=== PATIENT | male | born 1955 | race Caucasian/White ===

== ENCOUNTER 2017-07-08 17:15 | Emergency (ER) | payer OTHER ==
[2017-07-08] MEDS ORDERED: HYDROmorphONE/DILAUDID 1 MG/ML INJ IVP ONE (17:29)
[2017-07-08] MEDS ORDERED: NS 1,000 ML IV ONE ×2 (17:29→18:14)
[2017-07-08] MEDS ORDERED: ONDANSETRON DISINTEGRATING 4 MG TAB PO ONE (17:30)
--- NOTE | 2017-07-08 17:32 | EDPHY ---
H & P Time Seen by Provider: 07/08/17 17:26 HPI/ROS: CHIEF COMPLAINT: Left flank pain HISTORY OF PRESENT ILLNESS: The patient is a 61-year-old man who comes to the emergency department complaining of severe left flank pain that radiates to his groin. This began around 2 hours ago unexpectedly. He denies any injury. No lifting. No pain with movement. He states that he cannot get comfortable. He feels nauseous but has not vomited. No fever. He has had bilateral inguinal hernia surgery repair remotely. REVIEW OF SYSTEMS: Constitutional: denies: chills, fever, recent illness, recent injury EENTM: denies: blurred vision, double vision, nose congestion Respiratory: denies: cough, shortness of breath Cardiac: denies: chest pain, irregular heart rate, lightheadedness, palpitations Gastrointestinal/Abdominal: denies: abdominal pain, diarrhea, nausea, vomiting, blood streaked stools Genitourinary: See HPI Musculoskeletal: denies: joint pain, muscle pain Skin: denies: lesions, rash, jaundice, bruising Neurological: denies: headache, numbness, paresthesia, tingling, dizziness, weakness Hematologic/Lymphatic: denies: blood clots, easy bleeding, easy bruising Immunologic/allergic: denies: HIV/AIDS, transplant EXAM: GENERAL: Uncomfortable, well-nourished and in no acute distress. HEAD: Atraumatic, normocephalic. EYES: Pupils equal round and reactive to light, extraocular movements intact, sclera anicteric, conjunctiva are normal. ENT: TMs normal, nares patent, oropharynx clear without exudates. Moist mucous membranes. NECK: Normal range of motion, supple without lymphadenopathy or JVD. LUNGS: Breath sounds clear to auscultation bilaterally and equal. No wheezes rales or rhonchi. HEART: Regular rate and rhythm without murmurs, rubs or gallops. ABDOMEN: Soft, nontender, normoactive bowel sounds. No guarding, no rebound. No masses appreciated. BACK: No CVA tenderness, no spinal tenderness, step-offs or deformities EXTREMITIES: Normal range of motion, no pitting or edema. No clubbing or cyanosis. NEUROLOGICAL: Cranial nerves II through XII grossly intact. Normal speech, normal gait. 5/5 strength, normal movement in all extremities, normal sensation PSYCH: Normal mood, normal affect. SKIN: Warm, dry, normal turgor, no visible rashes or lesions. Source: Patient Exam Limitations: No limitations - Medical/Surgical History Hx Asthma: No Hx Chronic Respiratory Disease: No Hx Diabetes: No Hx Cardiac Disease: Yes Hx Renal Disease: No Hx Cirrhosis: No Hx Alcoholism: No Hx HIV/AIDS: No Other PMH: [place] 2006, Stents, HTN, ACL repair L knee, Hernia repair 2012. HODGKINS LYMPHOMA - Family History Significant Family History: No pertinent family hx - Social History Smoking Status: Never smoked Alcohol Use: Sober Drug Use: None Constitutional: Initial Vital Signs Temperature (C) 37.2 C 07/08/17 17:29 Heart Rate 65 07/08/17 17:29 Respiratory Rate 18 07/08/17 17:29 Blood Pressure 188/103 H 07/08/17 17:29 O2 Sat (%) 95 07/08/17 17:29 O2 Delivery Mode Room Air Allergies/Adverse Reactions: No Known Allergies Allergy (Verified 07/08/17 17:28) Home Medications: Medication Instructions Recorded Aspirin [Aspirin 325 mg (OTC)] 325 mg PO DAILY 11/07/13 Atorvastatin Calcium [Lipitor 80 80 mg PO DAILY 11/07/13 mg] Cholecalciferol Vit D3 [Vitamin D3 1,000 units PO DAILY 11/07/13 1000 units (OTC)] Herbals/Supplements -Info Only 1 each PO AD 11/07/13 Metoprolol Succinate Xr [Toprol Xl] 25 mg PO DAILY 11/07/13 [place]-3 Fatty Acids/Fish Oil [Fish 1 each PO DAILY 11/07/13 Oil 1,000 mg Softgel] Ubidecarenone [Coq-10] 100 mg PO DAILY 11/07/13 Ketorolac Tromethamine [Toradol] 10 mg PO Q6H #16 tab 07/08/17 Ondansetron Odt [Zofran Odt 4 mg 4 mg PO Q4 PRN #20 tab 07/08/17 (RX)] Tamsulosin HCl [Flomax] 0.4 mg PO DAILY #10 cap 07/08/17 oxyCODONE/APAP 5/325 [Percocet 1 - 2 tab PO Q4H PRN #14 tab 07/08/17 5/325] Medical Decision Making - Diagnostics Imaging Results: Imaging Impressions Abdomen/Pelvis CT 07/08/17 17:29 Impression: 1. 2 mm distal left ureteral stone, with moderate obstructive uropathy. 2. Coronary artery atherosclerosis. 3. Cholelithiasis, without evidence of cholecystitis. 4. Degenerative change in the spine. 5. Prostatic hypertrophy. 6. Additional findings, as above. Findings discussed with Jerzy Rascon M.D., on July 08, 2017 at 1802. Attention: This CT examination is specifically designed to evaluate patients who are clinically suspected of having acute obstructive uropathy. This examination does not use radiographic contrast, and as such, provides only a limited evaluation of the abdomen, pelvis, and retroperitoneum. If there is further clinical suspicion for pathological conditions other than obstructive uropathy, a complete CT evaluation of the abdomen and pelvis utilizing intravenous and oral contrast should be considered. ED Course/Re-evaluation: 6:45 p.m. the patient's pain is completely controlled. He has received a 2nd L of IV fluids because his creatinine was slightly elevated. I will prepare prescriptions for discharge. We discussed follow-up and continued management home. Discussed indications for returning. Differential Diagnosis: Partial list of the Differential diagnosis considered include but were not limited to; kidney stone, urinary tract infection and although unlikely based on the history and physical exam, I also considered diverticulitis, dissection, aneurysm. I discussed these differential diagnoses and the plan with the patient as well as the usual and expected course. The patient understands that the diagnosis is provisional and that in medicine we are not always correct and that further workup is often warranted. Usual and customary warnings were given. All of the patient's questions were answered. The patient was instructed to return to the emergency department should the symptoms at all worsen or return, otherwise to followup with the physician as we discussed. - Data Points Laboratory Results: Laboratory Results 07/08/17 17:41 07/08/17 17:41 07/08/17 07/08/17 17:41 17:41 WBC 9.50 10^3/uL 10^3/uL (3.80-9.50) RBC 4.79 10^6/uL 10^6/uL (4.40-6.38) Hgb 14.6 g/dL g/dL (13.7-17.5) Hct 44.1 % % (40.0-51.0) MCV 92.1 fL fL (81.5-99.8) MCH 30.5 pg pg (27.9-34.1) MCHC 33.1 g/dL g/dL (32.4-36.7) RDW 12.5 % % (11.5-15.2) Plt Count 207 10^3/uL 10^3/uL (150-400) MPV 10.6 fL fL (8.7-11.7) Neut % (Auto) 78.6 % H % (39.3-74.2) Lymph % (Auto) 12.5 % L % (15.0-45.0) [place] % (Auto) 6.7 % % (4.5-13.0) Eos % (Auto) 1.5 % % (0.6-7.6) Baso % (Auto) 0.4 % % (0.3-1.7) Nucleat RBC Rel Count 0.0 % % (0.0-0.2) Absolute Neuts (auto) 7.46 10^3/uL H 10^3/uL (1.70-6.50) Absolute Lymphs (auto) 1.19 10^3/uL 10^3/uL (1.00-3.00) Absolute Monos (auto) 0.64 10^3/uL 10^3/uL (0.30-0.80) Absolute Eos (auto) 0.14 10^3/uL 10^3/uL (0.03-0.40) Absolute Basos (auto) 0.04 10^3/uL 10^3/uL (0.02-0.10) Absolute Nucleated RBC 0.00 10^3/uL 10^3/uL (0-0.01) Immature Gran % 0.3 % % (0.0-1.1) Immature Gran # 0.03 10^3/uL 10^3/uL (0.00-0.10) Sodium 142 mEq/L mEq/L (134-144) Potassium 4.5 mEq/L mEq/L (3.5-5.2) Chloride 105 mEq/L mEq/L (97-110) Carbon Dioxide 25 mEq/l mEq/l (22-31) Anion Gap 12 mEq/L mEq/L (8-16) BUN 19 mg/dL mg/dL (7-23) Creatinine 1.3 mg/dL mg/dL (0.7-1.3) Estimated GFR 56 Glucose 92 mg/dL mg/dL (70-100) Calcium 9.9 mg/dL mg/dL (8.5-10.4) Total Bilirubin 0.8 mg/dL mg/dL (0.1-1.4) Conjugated Bilirubin 0.5 mg/dL mg/dL (0.0-0.5) Unconjugated Bilirubin 0.3 mg/dL mg/dL (0.0-1.1) AST 29 IU/L IU/L (17-59) ALT 41 IU/L IU/L (21-72) Alkaline Phosphatase 80 IU/L IU/L (38-126) Total Protein 6.7 g/dL g/dL (6.3-8.2) Albumin 4.1 g/dL g/dL (3.5-5.0) Lipase 163 IU/L IU/L (23-300) Medications Given: Discontinued Medications Hydromorphone HCl (Dilaudid) 1 mg IVP EDNOW ONE Stop: 07/08/17 17:30 Last Admin: 07/08/17 17:38 Dose: 1 mg Sodium Chloride (Ns) 1,000 mls @ 0 mls/hr IV EDNOW ONE; Wide Open PRN Reason: Protocol Stop: 07/08/17 17:30 Last Admin: 07/08/17 17:54 Dose: 1,000 mls Sodium Chloride (Ns) 1,000 mls @ 0 mls/hr IV EDNOW ONE; Wide Open PRN Reason: Protocol Stop: 07/08/17 18:15 Last Admin: 07/08/17 18:27 Dose: 1,000 mls Ketorolac Tromethamine (Toradol) 30 mg IVP EDNOW ONE Stop: 07/08/17 18:05 Last Admin: 07/08/17 18:10 Dose: 30 mg Ondansetron HCl (Zofran Odt) 4 mg PO EDNOW ONE Stop: 07/08/17 17:31 Last Admin: 07/08/17 17:54 Dose: 4 mg Tamsulosin HCl (Flomax) 0.4 mg PO EDNOW ONE Stop: 07/08/17 18:41 Last Admin: 07/08/17 18:44 Dose: 0.4 mg Departure - Departure Disposition: Home, Routine, Self-Care Clinical Impression: Calculus of left kidney Condition: Fair Instructions: Ketorolac (By mouth), Kidney Stones (ED) Referrals: Enrike Wallace MD [Primary Care Provider] - As per Instructions Neel Infante MD [Medical Doctor] - As per Instructions Prescriptions: Ketorolac Tromethamine [Toradol] 10 mg PO Q6H #16 tab Ondansetron Odt [Zofran Odt 4 mg (RX)] 4 mg PO Q4 PRN #20 tab PRN Reason: Nausea & Vomiting oxyCODONE/APAP 5/325 [Percocet 5/325] 1 - 2 tab PO Q4H PRN #14 tab PRN Reason: Pain, Severe Tamsulosin HCl [Flomax] 0.4 mg PO DAILY #10 cap
[2017-07-08 17:52] LABS: % IMMATURE GRANULYOCYTES 0.3 % (0.0-1.1); ABSOLUTE IMMATURE GRANULOCYTES 0.03 10^3/uL (0.00-0.10); ADD DIFF? NO; ADD MORPH? NO; ADD SCAN? NO; ATYPICAL LYMPHOCYTE FLAG 0 (0-99); FRAGMENT RBC FLAG 0 (0-99); HEMATOCRIT 44.1 % (40.0-51.0); HEMOGLOBIN 14.6 g/dL (13.7-17.5); LEFT SHIFT FLG 0 (0-99); LIPEMIA HEMOLYSIS FLAG 80 (0-99); MEAN CELL HEMOGLOBIN 30.5 pg (27.9-34.1); MEAN CELL HEMOGLOBIN CONCENTR. 33.1 g/dL (32.4-36.7); MEAN CELL VOLUME 92.1 fL (81.5-99.8); MEAN PLATELET VOLUME 10.6 fL (8.7-11.7); PLATELET CLUMPS FLAG 10 (0-99); PLATELET COUNT 207 10^3/uL (150-400); RED BLOOD CELL COUNT 4.79 10^6/uL (4.40-6.38); RED CELL DISTRIBUTION WIDTH 12.5 % (11.5-15.2)
[2017-07-08 17:53] VITALS: RESP 18
[2017-07-08] MEDS ORDERED: KETOROLAC 30 MG/1 ML SDV IVP ONE (18:04)
[2017-07-08 18:07] LABS: ALBUMIN 4.1 g/dL (3.5-5.0); BILIRUBIN,TOTAL 0.8 mg/dL (0.1-1.4); BILIRUBIN-CONJUGATED 0.5 mg/dL (0.0-0.5); BILIRUBIN-UNCONJUGATED 0.3 mg/dL (0.0-1.1); CALCIUM 9.9 mg/dL (8.5-10.4); CREATININE 1.3 mg/dL (0.7-1.3); POTASSIUM 4.5 mEq/L (3.5-5.2); TOTAL PROTEIN 6.7 g/dL (6.3-8.2)
[2017-07-08] MEDS ORDERED: TAMSULOSIN HCL 0.4 MG CAP PO ONE (18:40)
[2017-07-08 19:29] VITALS: BP 134/90; PULSE 68; TEMP 98.8; O2SAT 91
== END 2017-07-08 19:24 | disposition home or self-care (01) ==
LOC: CED 17:15
DX: N20.0 Calculus of kidney (principal); I10 Essential (primary) hypertension; E86.9 Volume depletion, unspecified; Z79.82 Long term (current) use of aspirin; Z95.5 Presence of coronary angioplasty implant and graft
CPT/HCPCS: 74176-PO; 80048-PO; 80076-PO; 83690-PO; 85025-PO; 96374; J1170; J1885

== ENCOUNTER 2017-09-11 05:48 | Day surgery (SDC) | payer OTHER ==
[2017-09-11] MEDS ORDERED: ceFAZolin 2 GM/SWFI 2 GM/20 ML SYR IVP ONE (06:02)
[2017-09-11] MEDS ORDERED: LR 1,000 ML IV ONE (06:03)
[2017-09-11] MEDS ORDERED: LIDOCAINE 1% 2 ML INJ ID PRN (06:03)
[2017-09-11] MEDS ORDERED: MIDAZOLAM 2 MG/2 ML VIAL IVP ONE (06:54)
[2017-09-11] MEDS ORDERED: BUPIVACAINE 0.25% 30 ML SDV ONE (06:55)
[2017-09-11] MEDS ORDERED: NALOXONE HCL 0.4 MG/ML INJ IVP PRN (06:55)
[2017-09-11] MEDS ORDERED: ALBUTEROL 3 ML DEYVIAL IH PRN (06:55)
[2017-09-11] MEDS ORDERED: BUPIVACAINE 0.5% 30 ML SDV ONE (06:55)
[2017-09-11] MEDS ORDERED: fentaNYL 100 MCG/2 ML INJ IVP PRN (06:55)
[2017-09-11] MEDS ORDERED: ONDANSETRON 4 MG/2 ML VIAL IVP PRN ×2 (06:55→08:12)
--- NOTE | 2017-09-11 06:55 | PDANEPAE ---
ANE History of Present Illness here for CTR ANE Past Medical History - Cardiovascular History Hx Hypertension: Yes Hx Arrhythmias: No Hx Chest Pain: No Hx Coronary Artery / Peripheral Vascular Disease: Yes Cardiovascular History Comment: 2 STENTS PLACED 2006. high chol. cad - Pulmonary History Hx COPD: No Hx Asthma/Reactive Airway Disease: No Hx Recent Upper Respiratory Infection: No Hx Oxygen in Use at Home: No Hx Sleep Apnea: No Sleep Apnea Screening Result - Last Documented: Positive Pulmonary History Comment: yoselin triggers only. hx of asthma none in years. prone to bronchitis - Neurologic History Hx Cerebrovascular Accident: No Hx Seizures: No Hx Dementia: No Neurologic History Comment: numbness to right hand. minimally to left hand - Endocrine History Hx Diabetes: No - Renal History Hx Renal Disorders: No - Liver History Hx Hepatic Disorders: No - Neurological & Psychiatric Hx Hx Neurological and Psychiatric Disorders: No - Cancer History Hx Cancer: Yes Cancer History Comment: 12/2013 hodgkins lymphoma with chemo and radiation - Congenital Disorder History Hx Congenital Disorders: No - GI History Hx Gastrointestinal Disorders: Yes Gastrointestinal History Comment: opiods cause extreme constipation - Other Health History Other Health History: wears glasses - Chronic Pain History Chronic Pain: Yes (right wrist/ hand and left shoulder) - Surgical History Prior Surgeries: 12/2013 bx between ribs for Hodgkins lymphoma. 11/10/13 Right partial knee with Holcomb. INGUINAL HERNIA BILATERAL 08/2013. ACL 28 YEARS AGO LEFT KNEE. MENISCUS RIGHT KNEE. ROTATOR CUFF RIGHT 2004 ANE Review of Systems Review of systems is: negative Review of Systems: - Exercise capacity Exercise capacity: >=4 METS METS (RN): 4 METS ANE Patient History - Allergies Allergies/Adverse Reactions: Opioids - Morphine Analogues Allergy (Verified 08/10/17 13:45) Other-Enter Comments - Home Medications Home medications: home medication list seen and reviewed Home Medications: Atorvastatin Calcium [Lipitor 80 mg] 11/07/13 [Last Taken 09/10/17] Cholecalciferol Vit D3 [Vitamin D3 1000 units (OTC)] 11/07/13 [Last Taken 09/04] Metoprolol Succinate Xr [Toprol Xl] 11/07/13 [Last Taken 09/10/17] Ubidecarenone [Coq-10] 11/07/13 [Last Taken 09/04/17] Aspirin 81mg (*) 08/10/17 [Last Taken 09/04/17] - NPO status NPO Status: no food or drink >8 hours NPO Since - Liquids (Date): 09/11/17 NPO Since - Liquids (Time): 04:00 NPO Since - Solids (Date): 09/10/17 NPO Since - Solids (Time): 23:55 - Anes Hx Anes Hx: no prior problems - Smoking Hx Smoking Status: Never smoked - Family Anes Hx Family Hx Anesthesia Complications: none ANE Labs/Vital Signs - Vital Signs Blood Pressure: 154/99 Heart Rate: 67 Respiratory Rate: 16 O2 Sat (%): 92 Height: 175.26 cm Weight: 76.204 kg ANE Physical Exam - Airway Neck exam: FROM Mallampati Score: Class 1 - Pulmonary Pulmonary: no respiratory distress - Cardiovascular Cardiovascular: regular rate and rhythym - ASA Status ASA Status: II ANE Anesthesia Plan Anesthesia Plan: GA w LMA
--- NOTE | 2017-09-11 07:05 | PDGENHP ---
History and Physical - Chief Complaint carpal tunnel syndrome - History of Present Illness Describe the reason for today's visit The patient is a 61 year old male who presents to our neurosurgery clinic today for apreop visit regarding carpal tunnel syndrome. He had a carpal tunnel injection which decreased the severe episodes of pain but his symptoms are still present. They are worse in the right than the left. and relatively unchanged from the last visit. He has also had bilateral wrist fractures and a bone graft on the RT wrist at the lateral radial head. The incision is not across the wrist. He presents today to sign consents for surgery. PAST MEDICAL HISTORY heart attack, stents 2006 hodgkins lymphoma 2014, neuropathy PAST SURGICAL HISTORY Hernia Sx: 2013 knee replacement 2014 rotator cuff R shoulder sx 2004 SOCIAL HISTORY Tobacco Use Never Smoked Alcohol Consumption Yes socially; once per month ALLERGIES DAIRY ROS 10 point ROS obtained and is negative except for what is stated in the history of present illness VITALS Height : 69.00 inch. 175.26 cm Weight : 168.00 lbs. 76.2 kg B M I: 24.81 Temperature : 98.40 F. 36.89 C Blood Pressure : 145 / 94 Pulse: 69 beats/minute PE Neuro Normal Constitutional No acute distress. Well developed Appropriate mood and affect Reflexes Brachioradialis (C5-6) Left 2+ Right 2+ Other Reflexes Hoffmans Absent Bilaterally Motor Examination Strength Upper Extremities Deltoid (C5-6) Bilaterally 5/5 Biceps-brachialis (C5-6) Bilaterally 5/5 Triceps(C7-8) Bilaterally 5/5 Interossei (C8-T1) Bilaterally 5/5 cranial nerves CNII-XII intact No facialasymmetry No tongue deviation EOMI Neurological Sensory Intact to light touch throughout ASSESSMENT/PLAN The patient is a 61 year old male with right greater than left carpal tunnel syndrome. He has failed conservative treatments including NSAIDs, wrist splints , and a carpal tunnel injection. He had an EMG of bilateral upper extremities on 12/09/16 that revealed RT moderate to severe and a LT mild median neuropathy of the wrist indicative of carpal tunnel syndrome. At this point he would like to move forward with bilateral carpal tunnel release beginning with the right side. I discussed the risks, benefits, and alternatives to the surgical intervention including the pre and post-op expectations and the procedure in great detail. He would like to start with the RT wrist as this side is the most severe. The patient elected to move forward with surgery. All questions were answered and consents were signed and the patient was pleased with the plan. History Information - Allergies/Home Medication List Allergies/Adverse Reactions: Opioids - Morphine Analogues Allergy (Verified 08/10/17 13:45) Other-Enter Comments Home Medications: Atorvastatin Calcium [Lipitor 80 mg] 11/07/13 [Last Taken 09/10/17] Cholecalciferol Vit D3 [Vitamin D3 1000 units (OTC)] 11/07/13 [Last Taken 09/04] Metoprolol Succinate Xr [Toprol Xl] 11/07/13 [Last Taken 09/10/17] Ubidecarenone [Coq-10] 11/07/13 [Last Taken 09/04/17] Aspirin 81mg (*) 08/10/17 [Last Taken 09/04/17] I have personally reviewed and updated: family history, medical history, social history, surgical history - Social History Smoking Status: Never smoked Review of Systems Review of Systems: Physical Exam Physical Exam: Temp Pulse Resp BP Pulse Ox 37.0 C 67 16 154/99 H 92 09/11/17 06:13 09/11/17 06:55 09/11/17 06:55 09/11/17 06:55 09/11/17 06:55
[2017-09-11] MEDS ORDERED: PROPOFOL 200 MG/20 ML VIAL ONE ×2 (07:16→07:32)
[2017-09-11] MEDS ORDERED: fentaNYL 100 MCG/2 ML INJ ONE (07:17)
[2017-09-11] MEDS ORDERED: LIDOCAINE 1% 300 MG/30 ML SDV ONE (07:25)
--- NOTE | 2017-09-11 08:10 | POSTOPPROG ---
Post Op Note Date of Operation: 09/11/17 Surgeon: Radha Hope [place] Steward: Anuradha Browne PA-C Anesthesia: GET(General Endotracheal) Pre-op Diagnosis: Carpal tunnel syndrome Post-op Diagnosis: Carpal tunnel syndrome Procedure: Right median nerve release Inf/Abcess present in the surg proc area at time of surgery?: No Depth: Deep Incisional (Fascial) EBL: Minimal Plan Plan: 61 yo male s/p right carpal tunnel release - neuro checks - pain control - advance diet as tolerated - dc home today Exam Awake. Alert Muscle strength full at 5/5 Sensation intact
[2017-09-11] MEDS ORDERED: ACETAMINOPHEN 325 MG TAB PO PRN (08:12)
[2017-09-11] MEDS ORDERED: traMADol 50 MG TAB PO PRN (08:12)
--- NOTE | 2017-09-11 08:50 | GOP ---
[f rep st] OPERATIVE REPORT DATE OF OPERATION: 09/11/2017 SURGEON: Radha Hope DO PILOT CAN ROUTER: Anuradha Browne PA-C. PREOPERATIVE DIAGNOSIS: Right carpal tunnel syndrome. POSTOPERATIVE DIAGNOSIS: Right carpal tunnel syndrome. PROCEDURE PERFORMED: Right carpal tunnel release. FINDINGS: SPECIMENS: None. ESTIMATED BLOOD LOSS: 3 mL. INDICATIONS: This is a 61-year-old male with moderate to severe carpal tunnel syndrome bilaterally w ho would like to move forward with right-sided carpal tunnel release first, followed by left in appro ximately 6 weeks. DESCRIPTION OF PROCEDURE: He was identified, consented. Sites were marked, including incision site just ulnar to the thenar crease. He was prepped and draped in the usual sterile fashion. After bein g anesthetized with MAC, he was anesthetized with 0.25% Marcaine with epinephrine, and 1% lidocaine p katarina. Incision was made with a 15 blade. Dissection with Metzenbaum scissors down onto the flexor r etinaculum, which was opened with Metzenbaum scissors, and then cut all the way up into the palmar re gion and into the forearm. We easily passed . Hemostasis was obtained with bipolar cauter y. Once hemostasis was obtained, we irrigated with gentamicin infused saline. Closed the subcutaneo us layer with 3-0 Vicryl pop-offs. The skin was closed with 4-0 nylon interrupted. Hand was dressed with bacitracin fluffs and an Ron. The patient tolerated procedure well. No complications. SURGEON: Radha Hope D.O. FLUID: 600 mL crystalloid. URINE OUTPUT: None. DRAINS: None. COMPLICATIONS: None. /[id number]/MODL
[2017-09-11 08:58] VITALS: BP 134/80; PULSE 85; RESP 16; TEMP 97.5; O2SAT 98
== END 2017-09-11 09:15 | disposition home or self-care (01) ==
LOC: FSGY 05:48
PROVIDERS: ATTEND Neurological Surgery
PROC: 01Q50ZZ Repair Median Nerve, Open Approach (ICD-10-PCS; principal; 2017-09-11 07:15)
DX: G56.01 Carpal tunnel syndrome, right upper limb (principal)
CPT/HCPCS: J0690; J2250; J2704; J3010